=== PATIENT | male | born 2005 | race Caucasian/White ===

== ENCOUNTER 2025-04-09 22:02 | Emergency (ER) | payer BC, SELFPAY ==
[2025-04-09 22:05] VITALS: BP 118/87
--- NOTE | 2025-04-09 22:58 | ED.GENMED ---
History of Present Illness
General
Chief Complaint: Musculo-Skeletal Complaint
Source: patient
Exam Limitations: none
Time Seen by Provider: 04/09/25 22:44
History of Present Illness
History of Present Illness:
19yo [id number] male presenting for evaluation of left shoulder pain. Patient was playing baseball around 5 PM this evening. He slid head first into a base and rolled over his left shoulder. He heard a crack in the shoulder joint. He
denies any paresthesias. No prior injuries to the left shoulder. He attends college at [employer].
Phy Exam
General Physical Exam
General Presentation: well appearing and no apparent distress
General Skin: warm and dry
General Habitus: normal
General Mental: alert
Neurological Exam
Neurological Exam: alert
Bernadine Coma Scale
Eye Opening: Spontaneous
Verbal Response: Oriented
Motor Response: Obeys Commands
GCS Total Score: 15
Musculoskeletal Exam
Musculoskeletal Exam: other (L shoulder: No deformity or skin changes. +Tenderness at proximal humerus. No AC joint tenderness. ROM intact but pain is elicited with internal rotation. 2+ radial pulse.)
Skin Exam
Skin Exam: normal color and warm/dry
Psychiatric Exam
Psychiatric Exam: normal mood/affect
Course
Orders/Labs/Results
Orders:
Orders
04/09/25 22:07
Shoulder, Left, Trauma CR [CR Shoulder, Trauma - Left] Urgent
Comment:
Reason For Exam: baseball injury.
04/09/25 23:00
Sling Left-Treatment ONCE
Vital Signs
Initial and Last Documented VS:
Initial Vital Signs
Temp Pulse Resp BP Pulse Ox
98 F 75 16 118/87 99
04/09/25 22:05 04/09/25 22:05 04/09/25 22:05 04/09/25 22:05 04/09/25 22:05
Last Documented Vital Signs
Temp Pulse Resp BP Pulse Ox
98 F 89 18 139/84 98
04/09/25 22:05 04/10/25 00:00 04/10/25 00:00 04/10/25 00:00 04/10/25 00:00
MDM/Problems Addressed
Differential Diagnosis Includes:
19yoM here with L shoulder pain after an injury. No deformity on exam. LUE is neurovascularly intact. Differential diagnosis includes: dislocation, fracture, sprain, AC separation
X-rays obtained which are negative for acute findings. Sling provided for comfort and supportive care discussed. He was advised to follow-up with orthopedics with any persistent symptoms.
*Pulse Oximetry
SaO2: 99
Oxygen Mode of Delivery: Room air
Patient hypoxic: no
*Critical Care Note
Total Time (30-74mins, 75-104mins- exclusive of procedures): Not Applicable
ED Attending Note
-
Portions of this chart may have been created with voice recognition software.� Occasional wrong word or��sound alike� substitutions may have occurred due to the inherent limitations of voice recognition software.
Discharge Plan
Departure
Patient Disposition: Home (Routine Discharge)
Date of Disposition: 04/09/25
Time of Disposition: 23:01
Patient with high blood pressure during this ER visit?: No
Discharge Problem:
Injury of left shoulder
Instructions: Shoulder pain - ED (DC)
Prescriptions:
No Action
Claritin-D 24 Hour 10-240 mg Tablet Extended Release 24 Hr
1 tab PO DAILY
Referrals:
Alton Kaufman MD [Active, Orthopedics]
UNKNOWN - PT DOES,NOT KNOW [Family Provider]
Activity Restrictions/Additional Instructions:
Wear sling as needed for comfort. Only use sling for the first 3 to 4 days. Apply ice to affected area. Take Tylenol and ibuprofen for pain.
Please follow-up with orthopedics if symptoms persist.
Interventions
Interventions:
*Risk Screen - Suicide Last Done: 04/09/25 22:05
*General Assessment Last Done: 04/09/25 22:33
*Neglect/Abuse Screening Last Done: 04/09/25 22:05
*ED- Fall Risk Assessment Last Done: 04/09/25 22:33
*ED COVID-19 Vaccine History Last Done: 04/09/25 22:33
*ED Influenza Vaccine History Last Done: 04/09/25 22:33
*Nursing Disposition Last Done: 04/10/25 00:10
ED-Musculoskeletal Assessment Last Done: 04/09/25 22:35
Discharge Date and Time
Discharge Date/Time: 04/10/25 00:10
Print Language: YI
[2025-04-10] VITALS: BP 139/84
== END 2025-04-10 00:10 | disposition home or self-care (01) ==
LOC: EMR 22:02
PROVIDERS: EMERGENCY PHYSICIAN Emergency Medicine
DX: S49.92XA Unspecified injury of left shoulder and upper arm, initial encounter (principal); W21.89XA Striking against or struck by other sports equipment, initial encounter; Y93.64 Activity, baseball; Y92.320 Baseball field as the place of occurrence of the external cause
CPT/HCPCS: 99283; 73030